=== PATIENT | female | born 1945 | race Caucasian/White ===

== ENCOUNTER → 2017-02-14 | Outpatient (CLI) | payer MEDICARE ==
[~2017-02-14] MED LIST: BENA5TAB2 PO; METF10002 PO; SIMV5TAB5 PO
== END | disposition home or self-care (01) ==
LOC: CFH 14:27
PROVIDERS: ATTEND Family Medicine
DX: Z12.31 Encounter for screening mammogram for malignant neoplasm of breast (principal)
CPT/HCPCS: G0202

== ENCOUNTER 2017-08-16 21:17 | Inpatient (IN) | payer MEDICARE ==
[~2017-08-16] VITALS: Ht 170.2 cm; Wt 105.9 kg
[2017-08-16] MEDS ORDERED: morphine SULFATE 10 MG/ML, 1ML ONE (22:05)
[2017-08-16] MEDS ORDERED: KETOROLAC 30 MG/1 ML ONE (22:05)
[2017-08-16] MEDS ORDERED: ONDANSETRON 2MG/ML, 2ML ONE (22:05)
[2017-08-16] MEDS ORDERED: HYDROmorphone 2 MG/ML, 1ML ONE (22:05)
[2017-08-16 22:27] LABS: BASOPHILS # (AUTO) 0.02 x10^3/uL (0-0.1); BASOPHILS % (AUTO) 0 % (0-1); EOSINOPHILS # (AUTO) 0.04 x10^3/uL (0-0.4); EOSINOPHILS % (AUTO) 0 % (1-7); LYMPHOCYTES # (AUTO) 0.59 x10^3/uL (1-3.4); LYMPHOCYTES % (AUTO) 4 % (22-44); MD NO; MEAN CORPUSCULAR HEMOGLOBIN 29.2 pg (27.0-34.8); MEAN CORPUSCULAR HGB CONC 33.4 g/dL (32.4-35.8); MEAN CORPUSCULAR VOLUME 87.5 fL (80-100); MEAN PLATELET VOLUME 9.5 fL (7.4-10.4); MONOCYTES # (AUTO) 0.45 x10^3/uL (0.2-0.8); MONOCYTES % (AUTO) 3 % (2-9); NEUTROPHILS # (AUTO) 12.61 x10^3/uL (1.8-6.8); NEUTROPHILS % (AUTO) 92 % (42-75); PLATELET COUNT 250 x10^3/uL (130-400); RED BLOOD COUNT 5.66 x10^6/uL (3.82-5.3); RED CELL DISTRIBUTION WIDTH 14.5 % (9.6-15.2)
[2017-08-16] MEDS ORDERED: KETOROLAC 30 MG/1 ML IVPush ONE (22:30)
[2017-08-16] MEDS ORDERED: SODIUM CHLORIDE 0.9% 1,000ML IVBOLUS ONE (22:30)
[2017-08-16] MEDS ORDERED: MORPHINE SULFATE 4 MG/ML, 1ML IVPush PRN (22:30)
[2017-08-16] MEDS ORDERED: ONDANSETRON 2MG/ML, 2ML IVPush ONE (22:30)
[2017-08-16] MEDS ORDERED: SODIUM CHLORIDE FLUSH 10ML SYR IVF ONE (22:30)
[2017-08-16 22:32] LABS: MICROSCOPIC NOT IND
[2017-08-16 22:36] LABS: CULTURE INDICATED? NO
[2017-08-16 22:40] LABS: ALANINE AMINOTRANSFERASE 33 U/L (12-78); ALBUMIN 4.2 g/dL (3.4-5.0); ANION GAP 12 mmol/L (5-15); CALCIUM 9.6 mg/dL (8.5-10.1); CHLORIDE 99 mmol/L (98-107); CREATININE 1.08 mg/dL (0.55-1.02)
[2017-08-16 22:42] LABS: RAPID INFLUENZA A Negative (Negative); RAPID INFLUENZA B Negative (Negative)
[2017-08-16 22:44] LABS: ALKALINE PHOSPHATASE 57 U/L (45-117); BILIRUBIN,TOTAL 0.5 mg/dL (0.2-1.0); TOTAL PROTEIN 8.2 g/dL (6.4-8.2); TROPONIN I < 0.015 ng/mL (0.000-0.045)
[2017-08-17] MEDS ORDERED: CYAN500T2 PO (00:08)
[2017-08-17] MEDS ORDERED: LORA10TA75 PO (00:08)
[2017-08-17] MEDS ORDERED: CHOL200024 PO (00:08)
[2017-08-17] MEDS ORDERED: SODIUM CHLORIDE 0.9% 1,000 ML IV SCH (02:04)
[2017-08-17] MEDS ORDERED: morphine SULFATE 10 MG/ML, 1ML IVPush PRN (02:30)
[2017-08-17] MEDS ORDERED: OXYcodone IR 5MG TABLET PO PRN (02:30)
[2017-08-17] MEDS ORDERED: PANTOPRAZOLE 40 MG IV IVPush SCH (02:30)
[2017-08-17] MEDS ORDERED: BISACODYL 10 MG SUPP PR PRN (02:30)
[2017-08-17] MEDS ORDERED: ACETAMINOPHEN 325 MG TABLET PO PRN ×2 (02:30→22:00)
[2017-08-17] MEDS ORDERED: ONDANSETRON 2MG/ML, 2ML IVPush PRN (02:30)
[2017-08-17] MEDS ORDERED: ENALAPRILAT 1.25 MG/ML, 2ML IVPush PRN (02:30)
[2017-08-17] MEDS ORDERED: POLYETHYLENE GLYCOL 17 GM PACKET PO PRN (02:30)
[2017-08-17] MEDS ORDERED: hydrALAzine 20 MG/ML, 1ML IVPush PRN (02:30)
[2017-08-17 02:53] LABS: HEMOGLOBIN A1C 6.3 % (4.2-6.3)
[2017-08-17 02:56] LABS: FREE T4 (FREE THYROXINE) 0.88 ng/dL (0.76-1.46); THYROID STIMULATING HORMONE 1.58 mIU/L (0.358-3.740)
[2017-08-17 02:58] VITALS: BP 91/64
[2017-08-17] MEDS ORDERED: OMNIPAQUE 350 MG/ML, 100ML BOTTLE ONE (05:33)
[2017-08-17 06:48] VITALS: BP 97/60
[2017-08-17] MEDS: INSULIN ASPART 100 UNITS/ML, PEN SQ-INSULIN SCH ×4 (07:57→21:00)
[2017-08-17] MEDS ORDERED: ENALAPRILAT 1.25 MG/ML, 2ML IV PRN (08:00)
[2017-08-17] MEDS: CYANOCOBALAMIN 1,000 MCG TABLET PO SCH (08:35)
[2017-08-17] MEDS: LORATADINE 10 MG TABLET PO SCH (08:35)
[2017-08-17] MEDS ORDERED: SENNA/DOCUSATE TABLET PO SCH (09:00)
[2017-08-17] MEDS ORDERED: BENAZEPRIL 5 MG TABLET PO SCH (09:00)
[2017-08-17] MEDS: POTASSIUM CHLORIDE 10 MEQ in D5%-0.45% NACL 1,000 ML IV SCH (09:42)
[2017-08-17] MEDS: MORPHINE SULFATE 4 MG/ML, 1ML IVPush PRN ×2 (09:49→17:17)
[2017-08-17] MEDS ORDERED: HYDR12.53 PO (12:26)
[2017-08-17] MEDS: GUAIFENESIN 200 MG TABLET PO SCH ×3 (13:18→21:23)
[2017-08-17 13:30] VITALS: BP 99/61
[2017-08-17 19:36] VITALS: BP 120/77
[2017-08-17] MEDS: CHOLECALCIFEROL 1,000 UNIT TABLET PO SCH (21:23)
[2017-08-17] MEDS: SIMVASTATIN 10 MG TABLET PO SCH (21:23)
[2017-08-18] MEDS: POTASSIUM CHLORIDE 10 MEQ in D5%-0.45% NACL 1,000 ML IV SCH (00:30)
[2017-08-18 01:06] VITALS: BP 100/63
[2017-08-18 05:18] LABS: CHLORIDE 103 mmol/L (98-107)
[2017-08-18 05:19] LABS: ALBUMIN 3.3 g/dL (3.4-5.0); ANION GAP 6 mmol/L (5-15); BASOPHILS # (AUTO) 0.02 x10^3/uL (0-0.1); BASOPHILS % (AUTO) 0 % (0-1); CALCIUM 8.3 mg/dL (8.5-10.1); EOSINOPHILS # (AUTO) 0.01 x10^3/uL (0-0.4); EOSINOPHILS % (AUTO) 0 % (1-7); LYMPHOCYTES # (AUTO) 1.02 x10^3/uL (1-3.4); LYMPHOCYTES % (AUTO) 17 % (22-44); MD NO; MEAN CORPUSCULAR HEMOGLOBIN 29.2 pg (27.0-34.8); MEAN CORPUSCULAR HGB CONC 33.2 g/dL (32.4-35.8); MEAN PLATELET VOLUME 9.3 fL (7.4-10.4); MONOCYTES # (AUTO) 0.39 x10^3/uL (0.2-0.8); MONOCYTES % (AUTO) 7 % (2-9); NEUTROPHILS # (AUTO) 4.54 x10^3/uL (1.8-6.8); NEUTROPHILS % (AUTO) 76 % (42-75); PLATELET COUNT 167 x10^3/uL (130-400); RED BLOOD COUNT 4.61 x10^6/uL (3.82-5.3); RED CELL DISTRIBUTION WIDTH 15.1 % (9.6-15.2)
[2017-08-18] MEDS: GUAIFENESIN 200 MG TABLET PO SCH ×4 (05:21→20:54)
[2017-08-18 05:22] LABS: CHOL/HDL RATIO 2.5; CHOLESTEROL, TOTAL 122 mg/dL (140-239); CREATININE 0.99 mg/dL (0.55-1.02); HDL CHOL % 40 % (28-40); HDL CHOLESTEROL (DIRECT) 49 mg/dL (40-60); LDL CHOLESTEROL,CALCULATED 52 mg/dL (54-169); LDL/HDL RATIO 1.1 (0.5-3.0); TRIGLYCERIDES 107 mg/dL (50-200); VLDL CHOLESTEROL 21 mg/dL (0-25)
[2017-08-18] MEDS: INSULIN ASPART 100 UNITS/ML, PEN SQ-INSULIN SCH ×4 (07:00→21:00)
[2017-08-18 08:15] VITALS: BP 120/48
[2017-08-18] MEDS: LORATADINE 10 MG TABLET PO SCH (09:00)
[2017-08-18] MEDS: CYANOCOBALAMIN 1,000 MCG TABLET PO SCH (09:00)
[2017-08-18] MEDS: MORPHINE SULFATE 4 MG/ML, 1ML IVPush PRN ×3 (10:29→20:55)
[2017-08-18 14:35] VITALS: BP 104/70
[2017-08-18] MEDS ORDERED: CEFTRIAXONE PMX 2GM/50ML 50 ML IV SCH (16:00)
[2017-08-18] MEDS ORDERED: LACTULOSE 10 GM/15 ML UDC PO PRN (18:30)
[2017-08-18] MEDS ORDERED: BISACODYL 10 MG SUPP PR PRN (18:30)
[2017-08-18] MEDS ORDERED: POLYETHYLENE GLYCOL 17 GM PACKET PO PRN (18:30)
[2017-08-18 20:00] VITALS: BP 105/65
[2017-08-18] MEDS: DOCUSATE 100 MG CAPSULE PO SCH (20:54)
[2017-08-18] MEDS: SIMVASTATIN 10 MG TABLET PO SCH (20:55)
[2017-08-18] MEDS: CHOLECALCIFEROL 1,000 UNIT TABLET PO SCH (21:43)
[2017-08-18] MEDS: DOXYCYCLINE 100MG TABLET PO SCH (21:43)
[2017-08-19 02:00] VITALS: BP 122/74
[2017-08-19] MEDS: GUAIFENESIN 200 MG TABLET PO SCH ×2 (05:41→11:14)
[2017-08-19 06:02] LABS: CALCIUM 8.2 mg/dL (8.5-10.1); CHLORIDE 102 mmol/L (98-107)
[2017-08-19 06:03] LABS: BASOPHILS # (AUTO) 0.04 x10^3/uL (0-0.1); BASOPHILS % (AUTO) 1 % (0-1); EOSINOPHILS # (AUTO) 0.02 x10^3/uL (0-0.4); EOSINOPHILS % (AUTO) 1 % (1-7); LYMPHOCYTES # (AUTO) 1.05 x10^3/uL (1-3.4); LYMPHOCYTES % (AUTO) 24 % (22-44); MD NO; MEAN CORPUSCULAR HEMOGLOBIN 29.5 pg (27.0-34.8); MEAN CORPUSCULAR HGB CONC 33.5 g/dL (32.4-35.8); MEAN PLATELET VOLUME 9.5 fL (7.4-10.4); MONOCYTES % (AUTO) 9 % (2-9); NEUTROPHILS # (AUTO) 2.91 x10^3/uL (1.8-6.8); NEUTROPHILS % (AUTO) 66 % (42-75); PLATELET COUNT 149 x10^3/uL (130-400); RED BLOOD COUNT 4.29 x10^6/uL (3.82-5.3); RED CELL DISTRIBUTION WIDTH 15.3 % (9.6-15.2)
[2017-08-19 06:06] LABS: ANION GAP 6 mmol/L (5-15); CREATININE 0.78 mg/dL (0.55-1.02)
[2017-08-19] MEDS: INSULIN ASPART 100 UNITS/ML, PEN SQ-INSULIN SCH ×2 (07:00→11:00)
[2017-08-19] MEDS: DOCUSATE 100 MG CAPSULE PO SCH (08:21)
[2017-08-19] MEDS: DOXYCYCLINE 100MG TABLET PO SCH (08:21)
[2017-08-19] MEDS: LORATADINE 10 MG TABLET PO SCH (08:21)
[2017-08-19] MEDS: CYANOCOBALAMIN 1,000 MCG TABLET PO SCH (08:50)
[2017-08-19 09:00] VITALS: BP 128/72
[2017-08-19] MEDS ORDERED: CEFTRIAXONE PMX 2GM/50ML 50 ML IV SCH (09:30)
[2017-08-19] MEDS ORDERED: DOXY100T PO (11:39)
[2017-08-19] MEDS ORDERED: CEFD300C37 PO (11:39)
[2017-08-19] MEDS ORDERED: OMEP-110 PO (11:40)
[2017-08-19] MEDS ORDERED: GUAI200T3 PO (11:40)
[2017-09-05] MEDS ORDERED: SIMV40TA3 PO (14:50)
[2017-09-05] MEDS ORDERED: BENA40TA2 PO (14:50)
[2017-09-05] MEDS ORDERED: METF500T4 PO (14:50)
[2017-09-05] MEDS ORDERED: FLUT9.9S NS (14:50)
[2017-09-05] MEDS ORDERED: ASPI-496 PO (14:59)
== END 2017-08-19 13:02 | disposition home or self-care (01) | DRG 871 ==
LOC: ED 22:06 → EDIP 08-17 00:54 → 4WST 08-17 02:31 → DCLOUNGE 08-19 12:44
PROVIDERS: ADMIT Internal Medicine; ATTEND Internal Medicine
DX: A41.9 Sepsis, unspecified organism (principal); J18.9 Pneumonia, unspecified organism; N17.9 Acute kidney failure, unspecified; E87.2 Acidosis; K56.2 Volvulus; E11.65 Type 2 diabetes mellitus with hyperglycemia; R13.10 Dysphagia, unspecified; K76.0 Fatty (change of) liver, not elsewhere classified; R16.0 Hepatomegaly, not elsewhere classified; K44.9 Diaphragmatic hernia without obstruction or gangrene; E04.2 Nontoxic multinodular goiter; E78.00 Pure hypercholesterolemia, unspecified; E78.5 Hyperlipidemia, unspecified; I10 Essential (primary) hypertension; K21.0 Gastro-esophageal reflux disease with esophagitis; K31.89 Other diseases of stomach and duodenum; Z90.710 Acquired absence of both cervix and uterus; Z90.49 Acquired absence of other specified parts of digestive tract
CPT/HCPCS: 36415; 71045; 71275; 74176; 76536; 80048; 80053; 80061; 81003; 82040; 82962; 83036; 83605; 83735; 84439; 84443; 84484; 85025; 87040; 87070; 87205; 87400; 93005; 96372; 96374; J0696; J1885; J2405; J3480; Q9967; C9113; J7030

== ENCOUNTER → 2017-09-05 | Outpatient (CLI) | payer MEDICARE ==
[~2017-09-05] MED LIST changes: +ASPI-496 PO; +BENA40TA2 PO; +CEFD300C37 PO; +CHOL200024 PO; +CYAN500T2 PO; +DOXY100T PO; +FLUT9.9S NS; +GUAI200T3 PO; +HYDR12.53 PO; +LORA10TA75 PO; +METF500T4 PO; +OMEP-110 PO; +SIMV40TA3 PO
[2017-09-05 15:35] LABS: BASOPHILS # (AUTO) 0.06 x10^3/uL (0-0.1); BASOPHILS % (AUTO) 1 % (0-1); EOSINOPHILS # (AUTO) 0.27 x10^3/uL (0-0.4); EOSINOPHILS % (AUTO) 3 % (1-7); LYMPHOCYTES # (AUTO) 2.31 x10^3/uL (1-3.4); LYMPHOCYTES % (AUTO) 25 % (22-44); MD NO; MEAN CORPUSCULAR HEMOGLOBIN 28.8 pg (27.0-34.8); MEAN CORPUSCULAR HGB CONC 32.9 g/dL (32.4-35.8); MEAN CORPUSCULAR VOLUME 87.7 fL (80-100); MEAN PLATELET VOLUME 9.9 fL (7.4-10.4); MONOCYTES # (AUTO) 0.44 x10^3/uL (0.2-0.8); MONOCYTES % (AUTO) 5 % (2-9); NEUTROPHILS # (AUTO) 6.07 x10^3/uL (1.8-6.8); NEUTROPHILS % (AUTO) 66 % (42-75); PLATELET COUNT 294 x10^3/uL (130-400); RED BLOOD COUNT 5.34 x10^6/uL (3.82-5.3); RED CELL DISTRIBUTION WIDTH 14.7 % (9.6-15.2)
[2017-09-05 15:36] LABS: INTERNATIONAL NORMALIZED RATIO 0.99 (0.93-1.1); PROTHROMBIN TIME 10.3 Seconds (9.6-11.5)
[2017-09-05 16:02] LABS: ALANINE AMINOTRANSFERASE 37 U/L (12-78); ALBUMIN 3.9 g/dL (3.4-5.0); ANION GAP 8 mmol/L (5-15); CALCIUM 9.5 mg/dL (8.5-10.1); CHLORIDE 102 mmol/L (98-107); CREATININE 0.97 mg/dL (0.55-1.02)
[2017-09-05 16:05] LABS: ALKALINE PHOSPHATASE 44 U/L (45-117); BILIRUBIN,TOTAL 0.5 mg/dL (0.2-1.0); TOTAL PROTEIN 7.4 g/dL (6.4-8.2)
== END ==
LOC: STAR 14:05
PROVIDERS: ATTEND Surgery
DX: Z01.818 Encounter for other preprocedural examination (principal); R79.1 Abnormal coagulation profile
CPT/HCPCS: 36415; 80053; 85025; 85610; 85730; 93005

== ENCOUNTER → 2017-11-07 | Outpatient (CLI) | payer MEDICARE ==
[~2017-11-07] MED LIST changes: +ACET-1600 PO; +IBUP-1222 PO; +LIDOCAINE-MPF 1%, 5ML ONE; +OXYC5CAP2 PO
== END | disposition home or self-care (01) ==
LOC: RAD 12:45
PROVIDERS: ATTEND Surgery
DX: E07.9 Disorder of thyroid, unspecified (principal)
CPT/HCPCS: 76942; 88172; 88173

== ENCOUNTER 2018-10-07 09:22 | Outpatient (CLI) | payer MEDICARE ==
[~2018-10-07 09:22] MED LIST changes: -BENA40TA2 PO; +BENA40TA3 PO; -BENA5TAB2 PO; +BENA5TAB3 PO; +HYDR12.517 PO; -HYDR12.53 PO; -LIDOCAINE-MPF 1%, 5ML ONE; +METF500T17 PO; -METF500T4 PO; +SIMV5TAB14 PO; -SIMV5TAB5 PO
== END 2018-10-07 23:59 | disposition home or self-care (01) ==
LOC: CVU 09:22
PROVIDERS: ATTEND Family Medicine
DX: M25.571 Pain in right ankle and joints of right foot (principal); M25.572 Pain in left ankle and joints of left foot; M25.551 Pain in right hip; M25.552 Pain in left hip; E11.65 Type 2 diabetes mellitus with hyperglycemia; E78.5 Hyperlipidemia, unspecified; M79.661 Pain in right lower leg; M79.662 Pain in left lower leg; Z87.891 Personal history of nicotine dependence
CPT/HCPCS: 93922

== ENCOUNTER 2019-06-16 09:51 | Emergency (ER) | payer MEDICARE ==
[~2019-06-16] VITALS: Ht 172.7 cm; Wt 111.0 kg
[~2019-06-16 09:51] MED LIST changes: -CYAN500T2 PO; +CYAN500T54 PO; -GUAI200T3 PO; +GUAI200T37 PO
[2019-06-16 11:41] LABS: BASOPHILS # (AUTO) 0.07 x10^3/uL (0-0.1); BASOPHILS % (AUTO) 1 % (0-1); EOSINOPHILS # (AUTO) 0.13 x10^3/uL (0-0.4); EOSINOPHILS % (AUTO) 2 % (1-7); LYMPHOCYTES # (AUTO) 1.88 x10^3/uL (1-3.4); LYMPHOCYTES % (AUTO) 27 % (22-44); MD NO; MEAN CORPUSCULAR HEMOGLOBIN 29.9 pg (27.0-34.8); MEAN CORPUSCULAR HGB CONC 33.4 g/dL (32.4-35.8); MEAN CORPUSCULAR VOLUME 89.6 fL (80-100); MEAN PLATELET VOLUME 9.2 fL (7.4-10.4); MONOCYTES # (AUTO) 0.39 x10^3/uL (0.2-0.8); MONOCYTES % (AUTO) 6 % (2-9); NEUTROPHILS # (AUTO) 4.43 x10^3/uL (1.8-6.8); NEUTROPHILS % (AUTO) 64 % (42-75); PLATELET COUNT 260 x10^3/uL (130-400); RED BLOOD COUNT 5.54 x10^6/uL (3.82-5.3); RED CELL DISTRIBUTION WIDTH 13.7 % (9.6-15.2)
[2019-06-16 11:43] LABS: MICROSCOPIC NOT IND
[2019-06-16 11:49] LABS: CULTURE INDICATED? NO
[2019-06-16 11:53] LABS: ANION GAP 6 mmol/L (5-15); CALCIUM 9.9 mg/dL (8.5-10.1); CHLORIDE 103 mmol/L (98-107)
[2019-06-16 11:56] LABS: ALANINE AMINOTRANSFERASE 34 U/L (12-78); ALKALINE PHOSPHATASE 50 U/L (45-117); BILIRUBIN,TOTAL 0.5 mg/dL (0.2-1.0); CREATININE 1.04 mg/dL (0.55-1.02); TOTAL PROTEIN 7.5 g/dL (6.4-8.2)
[2019-06-16] MEDS ORDERED: OMNIPAQUE 350 MG/ML, 100ML BOTTLE ONE (12:24)
[2019-06-16 14:20] VITALS: BP 129/63
== END 2019-06-16 14:28 | disposition home or self-care (01) ==
LOC: ED 14:22
DX: N95.2 Postmenopausal atrophic vaginitis (principal)
CPT/HCPCS: 36415; 74177; 80053; 81003; 85025; 99284; Q9967

== ENCOUNTER → 2020-11-28 | Outpatient (CLI) | payer MEDICARE ==
[~2020-11-28] MED LIST changes: +ALPR1TAB2 PO; -CYAN500T54 PO; +CYAN500T7 PO; +SIMV40TA20 PO; -SIMV40TA3 PO
== END | disposition home or self-care (01) ==
LOC: RAD 08:45
PROVIDERS: ATTEND Physician Assistant Surgical
DX: M51.16 Intervertebral disc disorders with radiculopathy, lumbar region (principal); N28.1 Cyst of kidney, acquired; M48.061 Spinal stenosis, lumbar region without neurogenic claudication
CPT/HCPCS: 72131; 72148